=== PATIENT | male | born 1990 | race Caucasian/White ===

== ENCOUNTER 2016-06-02 10:15 | Emergency (ER) | payer OTHER, MEDICAID ==
[~2016-06-02] VITALS: Ht 185.4 cm; Wt 109.5 kg
[2016-06-02] MEDS ORDERED: SODIUM CHLORIDE 0.9% 1,000 ML IV ONE (11:10)
[2016-06-02] MEDS ORDERED: SODIUM CHLORIDE 0.9% 1,000ML IVBOLUS ONE (11:30)
[2016-06-02] MEDS ORDERED: FAMOTIDINE 20 MG/2 ML IVP ONE (11:30)
[2016-06-02] MEDS ORDERED: ONDANSETRON 2MG/ML, 2ML IVPush ONE (11:30)
[2016-06-02] MEDS ORDERED: SODIUM CHLORIDE FLUSH 10ML SYR IVF ONE (11:30)
[2016-06-02] MEDS ORDERED: ONDANSETRON 2MG/ML, 2ML ONE (11:38)
[2016-06-02] MEDS ORDERED: FAMOTIDINE 20 MG/2 ML ONE (11:38)
[2016-06-02 11:55] LABS: BLOOD UREA NITROGEN 13 mg/dL (7-18)
[2016-06-02 11:59] LABS: ASPARTATE AMINO TRANSFERASE 26 U/L (15-37)
[2016-06-02] MEDS ORDERED: MORPHINE SULFATE 4 MG/ML, 1ML IVPush PRN (14:00)
[2016-06-02] MEDS ORDERED: OMNIPAQUE 350 MG/ML, 100ML BOTTLE ONE (14:21)
[2016-06-02 15:09] VITALS: BP 136/80
[2016-06-04 12:06] LABS: DEAMIDATED GLIADIN IGA 5 units (0-19); IMMUNOGLOBULIN A 297 mg/dL (90-386)
== END 2016-06-02 15:18 | disposition home or self-care (01) ==
LOC: ED 11:23
DX: R19.7 Diarrhea, unspecified (principal)
CPT/HCPCS: 36415; 74177; 80053; 81001; 82784; 83516; 83690; 85025; 87324; 89055; 96361; 96374; 96375; 99285; J2405; J7030; Q9967; S0028

== ENCOUNTER 2016-11-25 10:02 | Inpatient (IN) | payer OTHER, MEDICAID ==
[~2016-11-25] VITALS: Ht 185.4 cm; Wt 116.0 kg
[2016-11-25] MEDS ORDERED: SODIUM CHLORIDE 0.9% 1,000ML IVBOLUS ONE (10:30)
[2016-11-25] MEDS ORDERED: FAMOTIDINE 20 MG/2 ML IVP ONE (10:30)
[2016-11-25] MEDS ORDERED: ONDANSETRON 2MG/ML, 2ML IVPush ONE (10:30)
[2016-11-25] MEDS ORDERED: SODIUM CHLORIDE FLUSH 10ML SYR IVF ONE (10:30)
[2016-11-25] MEDS ORDERED: ONDANSETRON 2MG/ML, 2ML ONE ×2 (10:40→13:18)
[2016-11-25] MEDS ORDERED: FAMOTIDINE 20 MG/2 ML ONE (10:40)
[2016-11-25 10:42] LABS: HEMATOCRIT 51.8 % (39.2-51.8); HEMOGLOBIN 17.7 g/dL (13.7-18.0); WHITE BLOOD COUNT 13.3 x10^3/uL (3.4-10)
[2016-11-25] MEDS ORDERED: MORPHINE SULFATE 4 MG/ML, 1ML ONE ×2 (10:43→13:18)
[2016-11-25 10:53] LABS: ASPARTATE AMINO TRANSFERASE 54 U/L (15-37); BLOOD UREA NITROGEN 11 mg/dL (7-18)
[2016-11-25] MEDS: MORPHINE SULFATE 4 MG/ML, 1ML IVPush PRN ×2 (11:10→13:23)
[2016-11-25] MEDS ORDERED: OMNIPAQUE 350 MG/ML, 100ML BOTTLE ONE (11:37)
[2016-11-25] MEDS ORDERED: SODIUM CHLORIDE 0.9% 1,000 ML IV ONE ×2 (12:22→12:34)
[2016-11-25] MEDS ORDERED: MORPHINE SULFATE 4 MG/ML, 1ML IVPush PRN (13:00)
[2016-11-25] MEDS ORDERED: SODIUM CHLORIDE FLUSH 10ML SYR IVF PRN (13:00)
[2016-11-25] MEDS: ONDANSETRON 2MG/ML, 2ML IVPush PRN ×2 (13:23→22:21)
[2016-11-25] MEDS ORDERED: ONDANSETRON ODT 4 MG PO PRN (15:30)
[2016-11-25] MEDS: NS + 20MEQ KCL 1,000 ML IV SCH (16:22)
[2016-11-25] MEDS ORDERED: MOVIPREP POWDER 1 PREP KIT PO ONE (17:00)
[2016-11-25] MEDS ORDERED: PROMETHAZINE 12.5 MG SUPP PR PRN (17:30)
[2016-11-25] MEDS: morphine SULFATE 10 MG/ML, 1ML IVPush PRN ×2 (17:30→22:21)
[2016-11-25] MEDS: PROMETHAZINE 25 MG/ML, 1ML IM PRN (17:46)
[2016-11-25 19:11] VITALS: BP 133/86
[2016-11-25 22:14] LABS: HEMATOCRIT 46.6 % (39.2-51.8); HEMOGLOBIN 16.1 g/dL (13.7-18.0)
[2016-11-26] MEDS: NS + 20MEQ KCL 1,000 ML IV SCH ×3 (02:19→23:02)
[2016-11-26 03:10] VITALS: BP 126/70
[2016-11-26] MEDS ORDERED: MOVIPREP POWDER 1 PREP KIT PO ONE (04:00)
[2016-11-26] MEDS ORDERED: D5%-0.45% NACL 1,000 ML IV SCH (05:00)
[2016-11-26 05:23] LABS: BLOOD UREA NITROGEN 11 mg/dL (7-18)
[2016-11-26 05:38] LABS: HEMATOCRIT 45.7 % (39.2-51.8); HEMOGLOBIN 15.5 g/dL (13.7-18.0); WHITE BLOOD COUNT 11.5 x10^3/uL (3.4-10)
[2016-11-26 07:09] VITALS: BP 127/68
[2016-11-26] MEDS: ONDANSETRON 2MG/ML, 2ML IVPush PRN (07:32)
[2016-11-26] MEDS: morphine SULFATE 10 MG/ML, 1ML IVPush PRN ×3 (07:32→20:22)
[2016-11-26] MEDS ORDERED: PANTOPRAZOLE 40 MG IV IVPush SCH (09:00)
[2016-11-26 11:10] VITALS: BP 129/69
[2016-11-26] MEDS: PROMETHAZINE 25 MG/ML, 1ML IM PRN (11:39)
[2016-11-26] MEDS ORDERED: MIDAZOLAM 1 MG/ML, 5ML ONE (12:22)
[2016-11-26] MEDS ORDERED: FENTANYL PF 100 MCG/2ML ONE (12:22)
[2016-11-26 14:10] VITALS: BP 129/64
[2016-11-26 14:25] LABS: HEMATOCRIT 43.1 % (39.2-51.8); HEMOGLOBIN 14.8 g/dL (13.7-18.0)
[2016-11-26 18:01] VITALS: BP 138/88
[2016-11-26 20:00] VITALS: BP 125/82
[2016-11-27 04:00] VITALS: BP 131/78
[2016-11-27 05:41] LABS: HEMATOCRIT 42.4 % (39.2-51.8); HEMOGLOBIN 14.3 g/dL (13.7-18.0); WHITE BLOOD COUNT 12.9 x10^3/uL (3.4-10)
[2016-11-27 06:06] LABS: BLOOD UREA NITROGEN 9 mg/dL (7-18)
[2016-11-27 06:07] LABS: ASPARTATE AMINO TRANSFERASE 40 U/L (15-37)
[2016-11-27] MEDS: ONDANSETRON 2MG/ML, 2ML IVPush PRN (06:31)
[2016-11-27] MEDS: NS + 20MEQ KCL 1,000 ML IV SCH (06:31)
[2016-11-27 07:01] VITALS: BP 126/75
[2016-11-27] MEDS: morphine SULFATE 10 MG/ML, 1ML IVPush PRN (08:38)
[2016-11-27] MEDS ORDERED: PANTOPROZOLE 40MG TABLET PO SCH ×2 (09:00→17:00)
[2016-11-27] MEDS: PROMETHAZINE 25 MG/ML, 1ML IM PRN (10:19)
[2016-11-27 13:05] VITALS: BP 146/84
[2016-11-27] MEDS ORDERED: PANT40TA5 PO (20:00)
[2016-11-27] MEDS ORDERED: PROM12.54 PR (20:00)
[2016-11-27] MEDS ORDERED: ONDA4TAB13 PO (20:00)
[2016-11-27 20:19] VITALS: BP 149/81
== END 2016-11-27 21:10 | disposition home or self-care (01) | DRG 378 ==
LOC: ED 10:45 → EDIP 12:34 → 3NE 15:19
PROVIDERS: ADMIT Hospitalist; ATTEND Internal Medicine
PROC: 0DB68ZX Excision of Stomach, Via Natural or Artificial Opening Endoscopic, Diagnostic (ICD-10-PCS; 2016-11-26)
PROC: 0DBK8ZX Excision of Ascending Colon, Via Natural or Artificial Opening Endoscopic, Diagnostic (ICD-10-PCS; 2016-11-26)
PROC: 0DBL8ZX Excision of Transverse Colon, Via Natural or Artificial Opening Endoscopic, Diagnostic (ICD-10-PCS; 2016-11-26)
PROC: 0DBN8ZX Excision of Sigmoid Colon, Via Natural or Artificial Opening Endoscopic, Diagnostic (ICD-10-PCS; 2016-11-26)
PROC: 0DBM8ZX Excision of Descending Colon, Via Natural or Artificial Opening Endoscopic, Diagnostic (ICD-10-PCS; 2016-11-26)
PROC: 0DB98ZX Excision of Duodenum, Via Natural or Artificial Opening Endoscopic, Diagnostic (ICD-10-PCS; principal; 2016-11-26 12:30)
DX: K57.31 Diverticulosis of large intestine without perforation or abscess with bleeding (principal); K50.90 Crohn's disease, unspecified, without complications; K76.0 Fatty (change of) liver, not elsewhere classified; E66.9 Obesity, unspecified; E87.6 Hypokalemia; F12.90 Cannabis use, unspecified, uncomplicated; K21.0 Gastro-esophageal reflux disease with esophagitis; K44.9 Diaphragmatic hernia without obstruction or gangrene; Z68.33 Body mass index [BMI] 33.0-33.9, adult
CPT/HCPCS: 36415; 74177; 76700; 80048; 80053; 83690; 83735; 85014; 85018; 85025; 87046; 87324; 87899; 88305; 88342; 89055; 96361; 96374; 96375; 96376; 99152; 99153; J2250; J2405; J2550; J3010; J3480; Q9967; C9113; G0461; J2270; J7030; S0028

== ENCOUNTER 2016-11-29 17:07 | Inpatient (IN) | payer OTHER, MEDICAID ==
[~2016-11-29] VITALS: Ht 188 cm; Wt 113.9 kg
[~2016-11-29 17:07] MED LIST: ONDA4TAB13 PO; PANT40TA5 PO; PROM12.54 PR
[2016-11-29] MEDS ORDERED: SODIUM CHLORIDE 0.9% 1,000ML IVBOLUS ONE (18:30)
[2016-11-29] MEDS ORDERED: SODIUM CHLORIDE FLUSH 10ML SYR IVF ONE (18:30)
[2016-11-29] MEDS ORDERED: PROMETHAZINE 25 MG/ML, 1ML IM ONE (18:30)
[2016-11-29] MEDS ORDERED: PROMETHAZINE 25 MG/ML, 1ML ONE (18:38)
[2016-11-29 19:06] LABS: ASPARTATE AMINO TRANSFERASE 37 U/L (15-37); BLOOD UREA NITROGEN 6 mg/dL (7-18)
[2016-11-29 19:36] LABS: HEMATOCRIT 44.1 % (39.2-51.8); HEMOGLOBIN 15.1 g/dL (13.7-18.0); WHITE BLOOD COUNT 16.4 x10^3/uL (3.4-10)
[2016-11-29] MEDS: NS + 20MEQ KCL 1,000 ML IV SCH (20:54)
[2016-11-29] MEDS ORDERED: PANTOPRAZOLE 40 MG IV ONE (22:06)
[2016-11-29] MEDS ORDERED: NS + 20MEQ KCL 1,000 ML IV ONE (22:07)
[2016-11-29] MEDS: PANTOPRAZOLE 40 MG IV IVPush SCH (22:15)
[2016-11-29] MEDS ORDERED: ONDANSETRON 2MG/ML, 2ML ONE (22:15)
[2016-11-29] MEDS ORDERED: morphine SULFATE 10 MG/ML, 1ML ONE (22:16)
[2016-11-29] MEDS: morphine SULFATE 10 MG/ML, 1ML IVPush PRN (22:17)
[2016-11-29] MEDS: ONDANSETRON 2MG/ML, 2ML IVPush PRN (22:18)
[2016-11-29 23:05] VITALS: BP 143/83
[2016-11-30 01:51] VITALS: BP 122/75
[2016-11-30] MEDS: morphine SULFATE 10 MG/ML, 1ML IVPush PRN ×5 (01:59→22:25)
[2016-11-30 05:31] LABS: HEMATOCRIT 40.1 % (39.2-51.8); HEMOGLOBIN 13.7 g/dL (13.7-18.0); WHITE BLOOD COUNT 13.2 x10^3/uL (3.4-10)
[2016-11-30 05:38] LABS: BLOOD UREA NITROGEN 6 mg/dL (7-18)
[2016-11-30 05:43] LABS: ASPARTATE AMINO TRANSFERASE 34 U/L (15-37)
[2016-11-30] MEDS: NS + 20MEQ KCL 1,000 ML IV SCH ×3 (06:08→22:55)
[2016-11-30 08:56] VITALS: BP 123/72
[2016-11-30] MEDS: PANTOPRAZOLE 40 MG IV IVPush SCH ×2 (08:58→20:08)
[2016-11-30] MEDS: ONDANSETRON 2MG/ML, 2ML IVPush PRN ×2 (09:12→17:51)
[2016-11-30] MEDS ORDERED: METOCLOPRAMIDE 5 MG/ML, 2ML IVPush PRN (13:00)
[2016-11-30 14:44] VITALS: BP 122/74
[2016-11-30 18:40] VITALS: BP 153/76
[2016-12-01 01:16] VITALS: BP 133/76
[2016-12-01] MEDS: morphine SULFATE 10 MG/ML, 1ML IVPush PRN ×2 (01:32→05:44)
[2016-12-01 05:30] LABS: BLOOD UREA NITROGEN 5 mg/dL (7-18)
[2016-12-01 07:30] VITALS: BP 128/81
[2016-12-01] MEDS ORDERED: POTASSIUM CHLORIDE 20 MEQ TAB.ER.PRT PO ONE (08:00)
[2016-12-01] MEDS ORDERED: MAGNESIUM SULFATE PMX 2GM/50ML 50 ML IV ONE (08:00)
[2016-12-01] MEDS: PANTOPRAZOLE 40 MG IV IVPush SCH (08:26)
[2016-12-01] MEDS: NS + 20MEQ KCL 1,000 ML IV SCH (08:26)
== END 2016-12-01 13:40 | disposition home or self-care (01) | DRG 391 ==
LOC: ED 20:57 → EDIP 21:27 → 3NW 23:02 → DCLOUNGE 12-01 13:33
PROVIDERS: ADMIT Hospitalist; ATTEND Hospitalist
DX: R11.2 Nausea with vomiting, unspecified (principal); E43 Unspecified severe protein-calorie malnutrition; E87.2 Acidosis; K76.0 Fatty (change of) liver, not elsewhere classified; E86.0 Dehydration; D72.829 Elevated white blood cell count, unspecified; E66.9 Obesity, unspecified; Z68.32 Body mass index [BMI] 32.0-32.9, adult; E83.42 Hypomagnesemia; E87.5 Hyperkalemia; E87.6 Hypokalemia; G89.29 Other chronic pain; K29.80 Duodenitis without bleeding; K44.9 Diaphragmatic hernia without obstruction or gangrene
CPT/HCPCS: 36415; 80048; 80053; 82040; 83690; 83735; 85025; 86677; 87324; 96360; 96361; 96372; J2405; J2550; J3480; C9113; J2270; J2765; J3475; J7030

== ENCOUNTER 2016-12-03 16:27 | Emergency (ER) | payer OTHER, MEDICAID ==
[~2016-12-03] VITALS: Ht 188 cm; Wt 109.1 kg
[2016-12-03] MEDS ORDERED: ONDANSETRON 2MG/ML, 2ML IVPush ONE (17:00)
[2016-12-03] MEDS ORDERED: FAMOTIDINE 20 MG/2 ML IVP ONE (17:00)
[2016-12-03] MEDS ORDERED: SODIUM CHLORIDE 0.9% 1,000ML IVBOLUS ONE (17:00)
[2016-12-03] MEDS ORDERED: SODIUM CHLORIDE FLUSH 10ML SYR IVF ONE (17:00)
[2016-12-03 17:10] LABS: HEMATOCRIT 46.9 % (39.2-51.8); HEMOGLOBIN 15.8 g/dL (13.7-18.0); WHITE BLOOD COUNT 15.6 x10^3/uL (3.4-10)
[2016-12-03 17:14] LABS: ASPARTATE AMINO TRANSFERASE 45 U/L (15-37); BLOOD UREA NITROGEN 9 mg/dL (7-18)
[2016-12-03] MEDS ORDERED: METOCLOPRAMIDE 5 MG/ML, 2ML IVPush ONE (18:00)
[2016-12-03] MEDS ORDERED: FAMOTIDINE 20 MG/2 ML ONE ×2 (18:08→18:13)
[2016-12-03] MEDS ORDERED: METOCLOPRAMIDE 5 MG/ML, 2ML ONE ×2 (18:08→18:13)
[2016-12-03] MEDS ORDERED: morphine SULFATE 10 MG/ML, 1ML ONE (18:18)
[2016-12-03] MEDS ORDERED: MORPHINE SULFATE 4 MG/ML, 1ML IVPush ONE (18:30)
[2016-12-03 21:48] VITALS: BP 126/67
== END 2016-12-03 21:56 | disposition home or self-care (01) ==
LOC: ED 17:42
DX: G89.29 Other chronic pain (principal); R10.84 Generalized abdominal pain; R11.2 Nausea with vomiting, unspecified; R19.7 Diarrhea, unspecified; K50.90 Crohn's disease, unspecified, without complications
CPT/HCPCS: 36415; 76700; 80053; 81001; 83690; 85025; 87324; 89055; 96374; 96375; 99285; J2765; J7030; S0028

== ENCOUNTER 2017-05-15 10:47 | Emergency (ER) | payer OTHER, MEDICAID ==
[~2017-05-15] VITALS: Ht 188 cm; Wt 100.0 kg
[2017-05-15] MEDS ORDERED: HYDROcodone/APAP 5/325 TABLET PO PRN (12:00)
[2017-05-15] MEDS ORDERED: IBUPROFEN 200 MG TABLET PO ONE (12:00)
[2017-05-15] MEDS ORDERED: HYDROcodone/APAP 5/325 TABLET ONE (12:21)
[2017-05-15] MEDS ORDERED: IBUPROFEN 200 MG TABLET ONE (12:22)
[2017-05-15 13:02] VITALS: BP 138/83
== END 2017-05-15 13:04 | disposition home or self-care (01) ==
LOC: ED 12:50
DX: S93.492A Sprain of other ligament of left ankle, initial encounter (principal); X50.1XXA Overexertion from prolonged static or awkward postures, initial encounter; Y93.89 Activity, other specified; Y99.8 Other external cause status; Y92.009 Unspecified place in unspecified non-institutional (private) residence as the place of occurrence of the external cause
CPT/HCPCS: 29515; 99284

== ENCOUNTER 2017-10-29 11:02 | Emergency (ER) | payer OTHER, MEDICAID ==
[~2017-10-29] VITALS: Ht 185.4 cm; Wt 105.0 kg
[2017-10-29] MEDS ORDERED: METOCLOPRAMIDE 5 MG/ML, 2ML IVPush ONE (12:30)
[2017-10-29] MEDS ORDERED: FAMOTIDINE 20 MG/2 ML IVP ONE (12:30)
[2017-10-29] MEDS ORDERED: DIPHENHYDRAMINE 50 MG/ML, 1ML IVPush ONE (12:30)
[2017-10-29] MEDS ORDERED: SODIUM CHLORIDE FLUSH 10ML SYR IVF ONE (12:30)
[2017-10-29] MEDS ORDERED: METOCLOPRAMIDE 5 MG/ML, 2ML ONE (12:35)
[2017-10-29] MEDS ORDERED: FAMOTIDINE 20 MG/2 ML ONE (12:35)
[2017-10-29 12:55] LABS: BASOPHILS # (AUTO) 0.01 x10^3/uL (0-0.1); BASOPHILS % (AUTO) 0 % (0-1); EOSINOPHILS # (AUTO) 0.19 x10^3/uL (0-0.4); EOSINOPHILS % (AUTO) 1 % (1-7); LYMPHOCYTES # (AUTO) 1.16 x10^3/uL (1-3.4); LYMPHOCYTES % (AUTO) 7 % (22-44); MD NO; MEAN CORPUSCULAR HEMOGLOBIN 29.4 pg (27.5-34.5); MEAN CORPUSCULAR VOLUME 86.4 fL (81-97); MEAN PLATELET VOLUME 8.3 fL (7.4-10.4); MONOCYTES # (AUTO) 0.77 x10^3/uL (0.2-0.8); MONOCYTES % (AUTO) 5 % (2-9); NEUTROPHILS # (AUTO) 14.66 x10^3/uL (1.8-6.8); NEUTROPHILS % (AUTO) 87 % (42-75); PLATELET COUNT 261 x10^3/uL (130-400); RED CELL DISTRIBUTION WIDTH 13.6 % (9.4-14.8)
[2017-10-29 13:05] LABS: ALBUMIN 3.2 g/dL (3.4-5.0); ANION GAP 10 mmol/L (5-15); CALCIUM 8.6 mg/dL (8.5-10.1); CHLORIDE 111 mmol/L (98-107)
[2017-10-29 13:08] LABS: ALANINE AMINOTRANSFERASE 39 U/L (12-78); ALKALINE PHOSPHATASE 93 U/L (45-117); BILIRUBIN,TOTAL 0.6 mg/dL (0.2-1.0); CREATININE 0.83 mg/dL (0.7-1.3); TOTAL PROTEIN 6.7 g/dL (6.4-8.2)
[2017-10-29] MEDS ORDERED: ONDANSETRON ODT 4 MG PO ONE (15:30)
[2017-10-29] MEDS ORDERED: OMNIPAQUE 350 MG/ML, 100ML BOTTLE ONE (15:42)
[2017-10-29] MEDS ORDERED: ONDANSETRON ODT 4 MG ONE (15:43)
[2017-10-29 17:25] LABS: CLOSTRIDIUM DIFFICILE ANTIGEN NEGATIVE; CLOSTRIDIUM DIFFICILE TOXIN NEGATIVE (Negative)
[2017-10-29 17:33] VITALS: BP 134/71
== END 2017-10-29 17:38 | disposition home or self-care (01) ==
LOC: ED 13:37
DX: R11.2 Nausea with vomiting, unspecified (principal); R19.7 Diarrhea, unspecified; R10.84 Generalized abdominal pain; D72.829 Elevated white blood cell count, unspecified; I88.0 Nonspecific mesenteric lymphadenitis
CPT/HCPCS: 36415; 74177; 80053; 83690; 85025; 86677; 87324; 89055; 96374; 96375; 99285; J1200; J2765; Q0162; Q9967; S0028

== ENCOUNTER 2017-12-01 05:40 | Emergency (ER) | payer OTHER, MEDICAID ==
[~2017-12-01] VITALS: Ht 185.4 cm; Wt 99.4 kg
[2017-12-01 05:42] VITALS: BP 149/89
== END 2017-12-01 06:23 | disposition home or self-care (01) ==
LOC: ED 06:17
DX: T26.32XA Burns of other specified parts of left eye and adnexa, initial encounter (principal); T26.31XA Burns of other specified parts of right eye and adnexa, initial encounter; K50.90 Crohn's disease, unspecified, without complications; Y27.8XXA Contact with other hot objects, undetermined intent, initial encounter; Y93.89 Activity, other specified; Y92.89 Other specified places as the place of occurrence of the external cause; Y99.8 Other external cause status
CPT/HCPCS: 99283

== ENCOUNTER 2020-06-17 11:23 | Emergency (ER) | payer MEDICAID, OTHER ==
[~2020-06-17] VITALS: Ht 185.4 cm; Wt 95.7 kg
[~2020-06-17 11:23] MED LIST changes: -PANT40TA5 PO; +PANT40TA6 PO; -PROM12.54 PR; +[UNRECOGNIZED DRUG - CODE] PR
[2020-06-17 11:58] VITALS: BP 142/59
--- NOTE | 2020-06-17 12:51 | NUR ---
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
[2020-06-17] MEDS ORDERED: LIDOCAINE-MPF 1%, 5ML INFIL ONE (13:00)
[2020-06-17] MEDS ORDERED: DIPH,PERTUSS(ACELL),TET VAC/PF 0.5 ML IM-VACC ONE ×2 (13:00→13:16)
--- NOTE | 2020-06-17 13:06 | NUR ---
right wrist lac while using paper box maker at work. Dressing placed by [employer] but pt arrived private vehicle. Last tetanus vaccine more than 10 yrs ago.
--- NOTE | 2020-06-17 13:10 | NUR ---
PA in to see patient. one inch laceration.
[2020-06-17] MEDS ORDERED: LIDOCAINE-MPF 1%, 5ML ONE (13:16)
[2020-06-17] MEDS ORDERED: BACITRACIN ZINC OINT 500U/GM, 0.9 GM ONE (13:45)
== END 2020-06-17 13:55 | disposition home or self-care (01) ==
LOC: ED 13:14
DX: S51.811A Laceration without foreign body of right forearm, initial encounter (principal); K50.90 Crohn's disease, unspecified, without complications; X58.XXXA Exposure to other specified factors, initial encounter; Y93.89 Activity, other specified; Y92.69 Other specified industrial and construction area as the place of occurrence of the external cause; Y99.8 Other external cause status
CPT/HCPCS: 12031; 12041; 90471; 90715; 99284